=== PATIENT | male | born 1960 | race Caucasian/White ===

== ENCOUNTER 2016-12-02 07:29 | Emergency (ER) | payer OTHER ==
[2016-12-02] MEDS ORDERED: HYDROmorphONE/DILAUDID 1 MG/ML SYR ONE (07:45)
[2016-12-02] MEDS ORDERED: ONDANSETRON 4 MG/2 ML VIAL ONE (07:45)
[2016-12-02 07:47] LABS: COLOR YELLOW; LEUKOCYTE ESTERASE,URINE NEGATIVE (NEGATIVE); NITRITE,URINE NEGATIVE (NEGATIVE)
[2016-12-02] MEDS ORDERED: ONDANSETRON 4 MG/2 ML VIAL IVP ONE ×2 (07:52→08:03)
[2016-12-02] MEDS ORDERED: NS 1,000 ML IV ONE (07:52)
[2016-12-02] MEDS ORDERED: HYDROmorphONE/DILAUDID 1 MG/ML SYR IVP ONE ×2 (07:53→08:03)
[2016-12-02 08:07] LABS: BACTERIA TRACE /hpf (NONE SEEN); MUCUS TRACE /lpf (NONE-1+); RBC,URINE 50-182 /hpf (0-3)
[2016-12-02 08:16] LABS: ANION GAP 13 mEq/L (8-16); CALCIUM 9.9 mg/dL (8.5-10.4); CARBON DIOXIDE 27 mEq/l (22-31); CHLORIDE 101 mEq/L (97-110); GLOMERULAR FILTRATION RATE > 60; GLUCOSE 158 mg/dL (70-100); SODIUM 141 mEq/L (134-144)
[2016-12-02 08:17] LABS: % IMMATURE GRANULYOCYTES 0.3 % (0.0-1.1); ABSOLUTE IMMATURE GRANULOCYTES 0.03 10^3/uL (0.00-0.10); ADD DIFF? NO; ADD MORPH? NO; ADD SCAN? NO; ATYPICAL LYMPHOCYTE FLAG 0 (0-99); FRAGMENT RBC FLAG 10 (0-99); HEMATOCRIT 43.9 % (40.0-51.0); LEFT SHIFT FLG 0 (0-99); LIPEMIA HEMOLYSIS FLAG 90 (0-99); MEAN CELL HEMOGLOBIN 33.6 pg (27.9-34.1); MEAN CELL HEMOGLOBIN CONCENTR. 36.4 g/dL (32.4-36.7); MEAN CELL VOLUME 92.2 fL (81.5-99.8); MEAN PLATELET VOLUME 10.6 fL (8.7-11.7); PLATELET CLUMPS FLAG 10 (0-99); PLATELET COUNT 248 10^3/uL (150-400); RED BLOOD CELL COUNT 4.76 10^6/uL (4.40-6.38); RED CELL DISTRIBUTION WIDTH 11.5 % (11.5-15.2)
[2016-12-02 08:52] VITALS: TEMP 97.5
--- NOTE | 2016-12-02 09:11 | EDPHY ---
H & P Stated Complaint: R flank pain to hip - Personal History Current Tetanus/Diphtheria Vaccine: Unsure Current Tetanus Diphtheria and Acellular Pertussis (TDAP): Unsure - Medical/Surgical History Hx Asthma: No Hx Chronic Respiratory Disease: No Hx Diabetes: No Hx Cardiac Disease: No Hx Renal Disease: No Hx Cirrhosis: No Hx Alcoholism: No Hx HIV/AIDS: No Hx Splenectomy or Spleen Trauma: No - Social History Smoking Status: Never smoked Time Seen by Provider: 12/02/16 07:53 HPI/ROS: Chief complaint: Right flank pain History of present illness: This is a 56-year-old male presents to the emergency department for evaluation of right flank pain. Patient reports the onset of symptoms this morning. They have been slowly worsening. He describes a moderate pain. Pain radiates around towards his lower abdomen. He denies precipitating factors. He denies alleviating factors. He denies other associated signs or symptoms: No fevers or chills, no actual vomiting, no changes in bowel habits. He is urinating well without report of dysuria or hematuria. He has never had similar. Review of systems: A 10 point review of systems was obtained and other than described above was negative (Ian Hatfield) - Physical Exam Exam: General Appearance: Alert, nontoxic. Eyes: Pupils equal and round no pallor or injection. ENT, Mouth: Mucous membranes moist. Respiratory: There are no retractions, lungs are clear to auscultation. Cardiovascular: Regular rate and rhythm. Gastrointestinal: Abdomen is soft and non tender, no masses, bowel sounds normal. Genitourinary: No CVA tenderness Neurological: Alert and oriented. Strength and sensation intact and symmetrical. Skin: Warm and dry, no rashes. Musculoskeletal: Neck is supple non tender. Extremities are symmetrical, full range of motion. Psychiatric: Patient is oriented X 3, there is no agitation. (Ian Hatfield) Constitutional: Initial Vital Signs Temperature (C) 36.2 C 12/02/16 07:31 Heart Rate 63 12/02/16 07:31 Respiratory Rate 16 12/02/16 07:31 Blood Pressure 152/94 H 12/02/16 07:31 O2 Sat (%) 98 12/02/16 07:31 O2 Delivery Mode Room Air Allergies/Adverse Reactions: No Known Allergies Allergy (Unverified 12/02/16 07:35) Home Medications: Medication Instructions Recorded Hydrocodone/APAP 5/325 [Lyerly 1 tab PO Q4 #10 tab 12/02/16 5/325 (*)] Ondansetron Odt [Zofran Odt 4 mg 4 mg PO Q4 #6 tab 12/02/16 (*)] Tamsulosin HCl [Flomax 0.4 MG (*)] 0.4 mg PO DAILY 4 Days 12/02/16 Medical Decision Making - Diagnostics Imaging: CT scan of the abdomen pelvis shows a 2 x 3 mm right ureteral stone with mild right hydroureteralnephrosis, see report for complete details please (Ian Hatfield) ED Course/Re-evaluation: The patient was evaluated and managed by the physician's clinical physician assistant. My cosignature indicates that I reviewed the chart and I agree with the findings and plan of care as documented. I am the secondary supervising physician. ( Gayla Crouch) Patient seen under the supervision of my secondary supervising physician Dr. Gayla Crouch. Patient presents to the emergency department for right flank pain. Patient is nontoxic. Afebrile and vital signs are stable. He is IV hydrated. Symptomatically treated with good control of symptoms. Evaluation does reveal evidence of a right ureteral stone. No evidence of complications. I believe he will be appropriate for outpatient management. Patient is discharged home. Home care is discussed including pain management, hydration and attempting to strain his urine to catch the stone. He is referred to Urology for further evaluation and care. Return precautions are given. Patient voiced understanding and agreement with plan. (Ian Hatfield) Differential Diagnosis: Included but not limited to nephrolithiasis, pyelonephritis, cystitis, urethritis biliary tract disease, pancreatitis, PUD (Ian Hatfield) - Data Points Laboratory Results: Laboratory Results 12/02/16 07:45 12/02/16 07:45 12/02/16 12/02/16 07:45 07:30 WBC 10.08 H 10^3/uL (3.80-9.50) RBC 4.76 10^6/uL (4.40-6.38) Hgb 16.0 g/dL (13.7-17.5) Hct 43.9 % (40.0-51.0) MCV 92.2 fL (81.5-99.8) MCH 33.6 pg (27.9-34.1) MCHC 36.4 g/dL (32.4-36.7) RDW 11.5 % (11.5-15.2) Plt Count 248 10^3/uL (150-400) MPV 10.6 fL (8.7-11.7) Neut % (Auto) 67.9 % (39.3-74.2) Lymph % (Auto) 24.7 % (15.0-45.0) [place] % (Auto) 5.4 % (4.5-13.0) Eos % (Auto) 1.4 % (0.6-7.6) Baso % (Auto) 0.3 % (0.3-1.7) Nucleat RBC Rel Count 0.0 % (0.0-0.2) Absolute Neuts (auto) 6.85 H 10^3/uL (1.70-6.50) Absolute Lymphs (auto) 2.49 10^3/uL (1.00-3.00) Absolute Monos (auto) 0.54 10^3/uL (0.30-0.80) Absolute Eos (auto) 0.14 10^3/uL (0.03-0.40) Absolute Basos (auto) 0.03 10^3/uL (0.02-0.10) Absolute Nucleated RBC 0.00 10^3/uL (0-0.01) Immature Gran % 0.3 % (0.0-1.1) Immature Gran # 0.03 10^3/uL (0.00-0.10) Sodium 141 mEq/L (134-144) Potassium 4.0 mEq/L (3.5-5.2) Chloride 101 mEq/L (97-110) Carbon Dioxide 27 mEq/l (22-31) Anion Gap 13 mEq/L (8-16) BUN 20 mg/dL (7-23) Creatinine 1.0 mg/dL (0.7-1.3) Estimated GFR > 60 Glucose 158 H mg/dL (70-100) Calcium 9.9 mg/dL (8.5-10.4) Urine Color YELLOW Urine Appearance CLEAR Urine pH 5.0 (5.0-7.5) Ur Specific [place] 1.024 (1.002-1.030) Urine Protein 1+ H (NEGATIVE) Urine Ketones NEGATIVE (NEGATIVE) Urine Blood 3+ H (NEGATIVE) Urine Nitrate NEGATIVE (NEGATIVE) Urine Bilirubin NEGATIVE (NEGATIVE) Urine Urobilinogen NEGATIVE EU (0.2-1.0) Ur Leukocyte Esterase NEGATIVE (NEGATIVE) Urine RBC 50-182 H /hpf (0-3) Urine WBC 1-3 /hpf (0-3) Ur Epithelial Cells TRACE /lpf (NONE-1+) Urine Bacteria TRACE H /hpf (NONE SEEN) Urine Mucus TRACE /lpf (NONE-1+) Ur Culture Indicated? NOT INDICATED (NI) Urine Glucose NEGATIVE (NEGATIVE) Medications Given: Discontinued Medications Hydromorphone HCl (Dilaudid) 1 mg IVP EDNOW ONE Stop: 12/02/16 07:54 Last Admin: 12/02/16 07:54 Dose: 1 mg Hydromorphone HCl (Dilaudid) 0.5 mg IVP EDNOW ONE Stop: 12/02/16 08:04 Last Admin: 12/02/16 08:24 Dose: 0.5 mg Sodium Chloride (Ns) 1,000 mls @ 0 mls/hr IV ONCE ONE PRN Reason: Wide Open Stop: 12/02/16 07:53 Last Admin: 12/02/16 07:54 Dose: 1,000 mls Ketorolac Tromethamine (Toradol) 30 mg IVP EDNOW ONE Stop: 12/02/16 09:42 Last Admin: 12/02/16 09:43 Dose: 30 mg Ondansetron HCl (Zofran) 4 mg IVP EDNOW ONE Stop: 12/02/16 07:53 Last Admin: 12/02/16 07:54 Dose: 4 mg Ondansetron HCl (Zofran) 4 mg IVP EDNOW ONE Stop: 12/02/16 08:04 Last Admin: 12/02/16 08:25 Dose: 4 mg Tamsulosin HCl (Flomax) 0.4 mg PO EDNOW ONE Stop: 12/02/16 09:24 Last Admin: 12/02/16 09:40 Dose: 0.4 mg Departure - Departure Disposition: Home, Routine, Self-Care Clinical Impression: Kidney stone on right side Condition: Good Instructions: Kidney Stones (ED) Additional Instructions: Follow-up with Urology for continued evaluation and care Drink plenty of fluids to stay hydrated In regards to pain control see the following: Use ibuprofen 600 mg ] times a day for the next 2-3 days for pain In addition You have been prescribed Lyerly for pain. Lyerly contains Tylenol, do not take extra Tylenol/acetaminophen/Apap with it. It is sedating. Take Flomax as directed, you had a dose in the emergency department today, your next dose is tomorrow Use Zofran as needed for nausea and vomiting Strain urine as discussed, if you obtain the stone take it to Urology If symptoms worsen or new symptoms develop return to the emergency department for recheck Referrals: Galina High MD [Primary Care Provider] - As per Instructions Cipriano Álvarez MD [Medical Doctor] - As per Instructions Prescriptions: Tamsulosin HCl [Flomax 0.4 MG (*)] 0.4 mg PO DAILY 4 Days Hydrocodone/APAP 5/325 [Lyerly 5/325 (*)] 1 tab PO Q4 #10 tab Ondansetron Odt [Zofran Odt 4 mg (*)] 4 mg PO Q4 #6 tab
--- NOTE | 2016-12-02 09:15 | CT ---
Unenhanced CT Scan of the Abdomen and Pelvis (Renal Stone Protocol) Clinical History: 56-year-old male complaining of right flank and groin pain; rule out nephrolithiasi s or obstructive uropathy. Technique: A multidetector unenhanced helical CT scan was obtained from the lung bases inferiorly thr ough the proximal femora with images reformatted at 5.00 and 1.50 mm increments, and reviewed at a [facility] of window/level settings. Parasagittal and paracoronal reconstructed images were reviewed on e workstation. The DFOV is 40 cm. A dose reduction protocol was used. Comparison Study: None. Findings: Unenhanced CT Scan of the Abdomen: There is some mild bronchial thickening and bibasilar subsegmental dependent atelectasis. There is no focal infiltrate, or pleural or pericardial effusion. There is a punctate calcified granuloma in the caudal right hepatic lobe on series 3 image 44. There are no bili donald, pancreatic, splenic, adrenal, renal, or left ureteral calculi; however, there is a moderate degr ee of right hydroureteronephrosis and mild relative right nephromegaly with evidence of a 2 x 3 mm ca lculus in the right ureter at the L4 level. There is associated periureteral inflammatory stranding. There is no ureterolithiasis distal to this. There is a normal appearance to the appendix, seen on se ulices 3 images 52-66. The abdominal aorta and IVC are normal in caliber. There is mild constipation. T here is mild centripetal obesity. The osseous structures are notable for some degenerative changes wi ventral traction spurs in the lower thoracic spine, and moderate degenerative disk space narrowing at L5-S1 where a dorsal spur formation is seen. Unenhanced CT Scan of the Pelvis: The prostate gland is mildly enlarged, measuring 4.8 x 5.0 x 5.2 cm . The seminal vesicles are unremarkable. The urinary bladder is moderately distended. There are some phleboliths, but no convincing evidence of ureterolithiasis. Degenerative spur formation is seen in a ssociation with the SI joints. Well-corticated ossific densities are seen along the peripheral latera l margins of each acetabulum, most likely representing unfused secondary ossification centers. Impression: 1. Moderate right hydroureteronephrosis secondary to a 2 x 3 mm right ureterolith seen at the L4 leve l. 2. Mild prostate gland enlargement. Results were discussed with Ian Hatfield PA-C. A test result has been communicated to a licensed care provider and documented in [facility], 9:03:23 AM , 12/02/2016, [facility] Message ID [id number]. Attention: This CT examination is specifically designed to evaluate patients who are clinically susp ected of having acute obstructive uropathy. This examination does not use radiographic contrast, and as such, provides only a limited evaluation of the abdomen, pelvis, and retroperitoneum. If there i s further clinical suspicion for pathological conditions other than obstructive uropathy, a complete CT evaluation of the abdomen and pelvis utilizing intravenous, oral, and rectal contrast should be co nsidered.
[2016-12-02] MEDS ORDERED: TAMSULOSIN HCL 0.4 MG CAP PO ONE (09:23)
[2016-12-02] MEDS ORDERED: KETOROLAC 30 MG/1 ML SDV ONE (09:32)
[2016-12-02] MEDS ORDERED: KETOROLAC 30 MG/1 ML SDV IVP ONE (09:41)
[2016-12-02 09:43] VITALS: BP 164/84; PULSE 69; RESP 16; O2SAT 93
== END 2016-12-02 10:05 | disposition home or self-care (01) ==
DX: N20.0 Calculus of kidney (principal)
CPT/HCPCS: 96374; J1170; J1885; J2405

== ENCOUNTER → 2016-12-21 | Outpatient (CLI) | payer OTHER ==
--- NOTE | 2016-12-21 13:00 | DX ---
KUB, 2 images History: Kidney stones 3 weeks ago Comparison: CT December 02, 2016 Findings: It is difficult to determine if a 3 x 2 mm right ureteral stone has passed or not. 2 right pelvic phleboliths were present on the prior CT and are seen on the current study. No other urinary t ract stones are seen. Impression: The right ureteral stone is not obviously identified.
== END ==
LOC: FIMAGING 10:55
PROVIDERS: ATTEND Specialist
DX: Z87.442 Personal history of urinary calculi (principal)

== ENCOUNTER 2018-01-19 08:26 | Emergency (ER) | payer OTHER ==
--- NOTE | 2018-01-19 08:52 | EDPHY ---
H & P Stated Complaint: smoking thc /syncope with trauma to face/neck and upper back / paresthesia r Time Seen by Provider: 01/19/18 08:42 HPI/ROS: CHIEF COMPLAINT: Headache, neck pain, right arm paresthesias following fall HISTORY OF PRESENT ILLNESS: The patient presents to the ED with complaints of a mild frontal headache, posterior neck pain, right arm paresthesias and weakness following a mechanical fall last night. The patient reportedly fell backwards off of a bar stool striking his head. There was unknown loss of consciousness. The patient awoke with ongoing symptoms of weakness and numbness in his right arm with associated headache prompting his visit to the emergency department. The patient reportedly was smoking marijuana at the time of his syncopal event. The patient does have a history of syncope when smoking marijuana in the past. The patient takes no regular medications. He denies prior history of surgery. He denies additional acute complaints. REVIEW OF SYSTEMS: A comprehensive 10 point review of systems is otherwise negative aside from elements mentioned in the history of present illness. Source: Patient Exam Limitations: No limitations - Personal History Current Tetanus/Diphtheria Vaccine: Yes - Medical/Surgical History Hx Asthma: No Hx Chronic Respiratory Disease: No Hx Diabetes: No Hx Cardiac Disease: No Hx Renal Disease: No Hx Cirrhosis: No Hx Alcoholism: No Hx HIV/AIDS: No Hx Splenectomy or Spleen Trauma: No Other PMH: denies - Social History Smoking Status: Never smoked - Physical Exam Exam: General Appearance: Alert, no distress Head: Superficial abrasions Eyes: Pupils equal, round, reactive ENT, Mouth: No hemotympanum, no oral trauma Neck: In cervical collar, minimal tenderness to palpation in the mid cervical spine Respiratory: No chest wall tender, subcutaneous air, lungs clear bilaterally Cardiovascular: Regular rate and rhythm Abdomen: Abdomen is soft and nontender, pelvis stable Skin: Superficial scalp abrasion Back: No midline T/L/S pain Extremities: Nontender, full range of motion Neurological: GCS 15, 5/5 strength noted in all extremities with the exception of the right upper extremity which did have 5-out of 5 strength with wrist extension, patient does report decreased sensation to light touch in all 5 fingers in his hand however was able to detect light touch and painful stimuli. Constitutional: Initial Vital Signs Temperature (C) 36.7 C 01/19/18 08:36 Heart Rate 76 01/19/18 08:36 Respiratory Rate 16 01/19/18 08:36 Blood Pressure 133/81 H 01/19/18 08:36 O2 Sat (%) 94 01/19/18 08:36 O2 Delivery Mode Nasal Cannula O2 (L/minute) 2 Allergies/Adverse Reactions: No Known Allergies Allergy (Verified 01/19/18 08:36) Home Medications: Medication Instructions Recorded Hydrocodone/APAP 5/325 [Kimball 1 - 2 each PO Q6 PRN #20 tab 01/19/18 5/325] Medical Decision Making - Diagnostics EKG Interpretation: EKG: Complete interpretation has been separately recorded in the [facility] archive. Summary impression: Sinus rhythm, rate 75, ST segment elevation is noted in V1 and V2 which appears to be most consistent with early repolarization. Imaging Results: Imaging Impressions Cervical Spine CT 01/19/18 09:01 Impression: There is no acute intracranial abnormality identified on this unenhanced CT evaluation. UNENHANCED CT SCAN OF THE CERVICAL SPINE Technique: A multidetector unenhanced helical CT scan was obtained from the clivus caudally through the caudal C2 level, with images reformatted at 1.50 mm increments, and are reviewed in soft tissue, bone, and lung windows. Parasagittal and paracoronal reconstructed images are reviewed on the workstation. The DFOV is 14.2 cm. A dose reduction protocol was used. 3D reformatting using [employer] software was reviewed on the workstation. Findings: The cervical vertebral body heights are maintained. There is 2 mm of C3 degenerative anterolisthesis above C4. There is partial ossification of the anterior longitudinal ligament at C5-C6. There are ventral traction osteophytes from C5 to T2, and dorsal traction osteophytes at C5-C6 and C6-C7. There is no acute fracture, or facet malalignment, although there is asymmetric facet hypertrophy and degenerative change articularly on the left at C3-C4. The interspinous distances are normal. The craniocervical junction is normal. The predental space, and the atlantoaxial lateral mass alignment is normal. The base and the tip of the dens are normal. There is no paravertebral or epidural hematoma identified. The prevertebral soft tissues are normal, as are the lung apices. C1-C2: There is some mild degenerative change seen anteriorly along the anterior arch of C1 and anterior cephalad margin of the dens. The central canal remains patent. C1-C2: Normal. C3-C4: There is trace degenerative anterolisthesis. There is severe left-sided facet hypertrophy. Uncovertebral degenerative spondylosis results in mild right and severe left neural foraminal stenosis. There is some minimal sequential disk bulging, with no significant secondarily acquired canal stenosis. C4-C5: There is facet hypertrophy, right greater than left, with uncovertebral degenerative spondylosis, resulting in moderate bilateral neural foraminal stenoses. The central canal is still relatively patent. C5-C6: There is uncovertebral degenerative spondylosis and facet hypertrophy, resulting in moderate to severe bilateral neural foraminal stenosis. There is a mild to moderate degree of central canal stenosis. C6-C7: There is moderate central canal stenosis with an AP diameter of 9 mm. There is uncovertebral degenerative spondylosis and facet hypertrophy, resulting in moderate bilateral neural foraminal stenosis. C7-T1: There is some hypertrophy and uncovertebral degenerative spondylosis, resulting in moderate right and mild left neural foraminal stenosis. There is a mild degree of central canal stenosis. Impression: Multilevel degenerative changes as above-detailed, with variable degrees of central canal and neural foraminal stenoses, but no acute cervical osseous abnormality. If there is further clinical concern regarding the patient's symptoms, correlative MR imaging could be considered, if otherwise not contraindicated. Findings were discussed with Tony Tripp MD at 10:06, on 01/19/2018. Head CT 01/19/18 09:01 Impression: There is no acute intracranial abnormality identified on this unenhanced CT evaluation. UNENHANCED CT SCAN OF THE CERVICAL SPINE Technique: A multidetector unenhanced helical CT scan was obtained from the clivus caudally through the caudal C2 level, with images reformatted at 1.50 mm increments, and are reviewed in soft tissue, bone, and lung windows. Parasagittal and paracoronal reconstructed images are reviewed on the workstation. The DFOV is 14.2 cm. A dose reduction protocol was used. 3D reformatting using [employer] software was reviewed on the workstation. Findings: The cervical vertebral body heights are maintained. There is 2 mm of C3 degenerative anterolisthesis above C4. There is partial ossification of the anterior longitudinal ligament at C5-C6. There are ventral traction osteophytes from C5 to T2, and dorsal traction osteophytes at C5-C6 and C6-C7. There is no acute fracture, or facet malalignment, although there is asymmetric facet hypertrophy and degenerative change articularly on the left at C3-C4. The interspinous distances are normal. The craniocervical junction is normal. The predental space, and the atlantoaxial lateral mass alignment is normal. The base and the tip of the dens are normal. There is no paravertebral or epidural hematoma identified. The prevertebral soft tissues are normal, as are the lung apices. C1-C2: There is some mild degenerative change seen anteriorly along the anterior arch of C1 and anterior cephalad margin of the dens. The central canal remains patent. C1-C2: Normal. C3-C4: There is trace degenerative anterolisthesis. There is severe left-sided facet hypertrophy. Uncovertebral degenerative spondylosis results in mild right and severe left neural foraminal stenosis. There is some minimal sequential disk bulging, with no significant secondarily acquired canal stenosis. C4-C5: There is facet hypertrophy, right greater than left, with uncovertebral degenerative spondylosis, resulting in moderate bilateral neural foraminal stenoses. The central canal is still relatively patent. C5-C6: There is uncovertebral degenerative spondylosis and facet hypertrophy, resulting in moderate to severe bilateral neural foraminal stenosis. There is a mild to moderate degree of central canal stenosis. C6-C7: There is moderate central canal stenosis with an AP diameter of 9 mm. There is uncovertebral degenerative spondylosis and facet hypertrophy, resulting in moderate bilateral neural foraminal stenosis. C7-T1: There is some hypertrophy and uncovertebral degenerative spondylosis, resulting in moderate right and mild left neural foraminal stenosis. There is a mild degree of central canal stenosis. Impression: Multilevel degenerative changes as above-detailed, with variable degrees of central canal and neural foraminal stenoses, but no acute cervical osseous abnormality. If there is further clinical concern regarding the patient's symptoms, correlative MR imaging could be considered, if otherwise not contraindicated. Findings were discussed with Tony Tripp MD at 10:06, on 01/19/2018. Cervical Spine MRI 01/19/18 11:26 Impression: 1. Multilevel advanced degenerative changes, particularly from C3-C4 through C7- T1 with bilateral neural foraminal stenoses secondary to uncovertebral degenerative spondylosis and facet osteoarthropathy. 2. Secondary indicator of underlying muscle spasm, with some mild prevertebral edema noted from C4 to T2. Findings were discussed with Tony Tripp MD at 13:41, on 01/19/2018. ED Course/Re-evaluation: The patient presents to the ED for evaluation of right upper extremity numbness and weakness following a fall off a bar stool last night. The patient was taken for a CT scan of the head and cervical spine which demonstrate no evidence of an acute fracture or intracranial hemorrhage. Additionally, the patient had an EKG which demonstrated some nonspecific precordial changes without a prior EKG to compare to. The patient had no complaints of chest pain or shortness of breath nor does he of history of exertional chest pain or shortness of breath. The patient's troponin is normal. I re-evaluated the patient at 11:00 a.m.: The patient continues to have some paresthesias in his right upper extremity. An MRI of the cervical spine was ordered. 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 There is no obvious disc herniation or occult fracture noted. Patient was re-evaluated at 2:00 p.m.. He will be placed in a [place] J collar given his ligamentous edema. He is neurologically intact currently. He will be advised to follow up with our on-call spine surgeon Dr. Liu. The patient will be given a prescription for Kimball. He is advised also use ibuprofen. The patient is given customary aftercare instructions and return precautions. Differential Diagnosis: Differential diagnosis considered includes intracranial hemorrhage, cervical spine fracture, cervical disc herniation, peripheral neuropathy - Data Points Laboratory Results: Laboratory Results 01/19/18 09:00 01/19/18 09:00 Sodium 141 mEq/L mEq/L (135-145) Potassium 4.2 mEq/L mEq/L (3.5-5.2) Chloride 107 mEq/L mEq/L (97-110) Carbon Dioxide 21 mEq/l L mEq/l (22-31) Anion Gap 13 mEq/L mEq/L (8-16) BUN 14 mg/dL mg/dL (7-23) Creatinine 0.8 mg/dL mg/dL (0.7-1.3) Estimated GFR > 60 Glucose 114 mg/dL H mg/dL (70-100) Calcium 9.5 mg/dL mg/dL (8.5-10.4) Troponin I < 0.012 ng/mL ng/mL (0.000-0.034) Medications Given: Discontinued Medications Hydromorphone HCl (Dilaudid) 1 mg IVP EDNOW ONE Stop: 01/19/18 12:19 Last Admin: 01/19/18 12:24 Dose: 1 mg Lorazepam (Ativan Injection) 1 mg IVP EDNOW ONE Stop: 01/19/18 12:19 Last Admin: 01/19/18 12:24 Dose: 1 mg Departure - Departure Disposition: Home, Routine, Self-Care Clinical Impression: Cervical strain, acute Condition: Good Instructions: Cervical Strain (ED) Additional Instructions: 1. Please wear neck collar until seen in follow-up by the neurosurgeon, Dr. Fuentes 2. Return to the ED for worsening numbness, weakness, difficulty urinating or other concerns. 3. Please follow up with your primary care provider for a recheck within the week. Referrals: Galina High MD [Primary Care Provider] - As per Instructions Bishop Fuentes MD [Medical Doctor] - As per Instructions Prescriptions: Hydrocodone/APAP 5/325 [Kimball 5/325] 1 - 2 each PO Q6 PRN #20 tab PRN Reason: for pain
--- NOTE | 2018-01-19 09:11 | CPEKG ---
Heart Rate: 75 RR Interval: 800 P-R Interval: 160 QRSD Interval: 94 QT Interval: 396 QTC Interval: 443 P [place]: 73 QRS [place]: 30 T Wave [place]: 11 EKG Severity - OTHERWISE NORMAL ECG - EKG Impression: SINUS RHYTHM EKG Impression: MINIMAL ST ELEVATION, ANTERIOR LEADS Electronically Signed By: Tony Tripp 19-Jan-2018 12:01:01
[2018-01-19 11:23] VITALS: TEMP 98.6
[2018-01-19] MEDS ORDERED: LORazepam 2 MG/ML INJ IVP ONE (12:18)
[2018-01-19] MEDS ORDERED: HYDROmorphONE/DILAUDID 1 MG/ML INJ IVP ONE (12:18)
[2018-01-19] MEDS ORDERED: HYDROmorphONE/DILAUDID 2 MG/ML INJ ONE (12:20)
[2018-01-19 13:27] VITALS: BP 112/71; PULSE 77; RESP 16; O2SAT 97
== END 2018-01-19 14:10 | disposition home or self-care (01) ==
DX: S20.20XA Contusion of thorax, unspecified, initial encounter (principal); W01.198A Fall on same level from slipping, tripping and stumbling with subsequent striking against other object, initial encounter; Y92.89 Other specified places as the place of occurrence of the external cause; Y93.89 Activity, other specified
CPT/HCPCS: 96374; J1170; J2060